=== PATIENT | male | born 2000 | race Caucasian/White ===

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

== ENCOUNTER 2022-09-28 17:28 | Emergency (ER) | payer MEDICAID ==
[2022-09-28 18:13] VITALS: BP 111/65; PULSE 64
== END 2022-09-28 18:37 | disposition home or self-care (01) ==
LOC: JP.ED 17:28
DX: S09.90XA Unspecified injury of head, initial encounter (principal); Z86.16 Personal history of COVID-19; V00.131A Fall from skateboard, initial encounter; Y93.51 Activity, roller skating (inline) and skateboarding
CPT/HCPCS: 99283